=== PATIENT | female | born 1950 | race African-American/Black ===

== ENCOUNTER → 2016-09-22 | Outpatient (CLI) | payer BC ==
--- NOTE | 2016-09-22 16:25 | RAD ---
DATE: 09/22/2016 EXAM: MAMMO ROBIN FRANCIS CHANEL, BREAST RIGHT HISTORY: Screening COMPARISON: 02/05/2015 This study was interpreted with the benefit of Computerized Aided Detection (CAD). FINDINGS: The breast parenchyma shows scattered fibroglandular densities. Breast parenchyma level B. There is a well-defined periareolar nodule in the right breast best demonstrated on the cc images and robin image 20. This is also seen on the lateral robin image 16. It appears very well defined. The left breast appears unremarkable and unchanged.. Targeted ultrasound was performed. At the 10:00 position of the breast there is a hypoechoic 4 mm mass compatible with that seen on mammography. It has a benign appearance. Some vascularity is seen around the mass but not within the mass. IMPRESSION: Probable benign nodule right breast. Follow-up right breast mammogram and targeted ultrasound suggested in 6 months BI-RADS CATEGORY: 3 PROBABLE BENIGN FINDING(S-SHORT INTERVAL FOLLOW-UP SUGGESTED RECOMMENDED FOLLOW-UP: 6M 6 MONTH FOLLOW-UP PQRS compliance statement: Patient information was entered into a reminder system with a target due date 03/25/2017 for the next mammogram. Mammography is a sensitive method for finding small breast cancers, but it does not detect them all and is not a substitute for careful clinical examination. A negative mammogram does not negate a clinically suspicious finding and should not result in delay in biopsying a clinically suspicious abnormality. "Our facility is accredited by the [employer] Mammography [employer]."
== END | disposition home or self-care (01) ==
LOC: MAMMO 13:57
PROVIDERS: ATTEND Family Medicine
DX: R92.8 Other abnormal and inconclusive findings on diagnostic imaging of breast (principal)
CPT/HCPCS: 76641; G0204; G0279; 77062; 77066

== ENCOUNTER → 2017-06-10 | Outpatient (CLI) | payer BC ==
--- NOTE | 2017-06-10 14:36 | RAD ---
DATE: 06/10/2017 EXAM: DIGITAL DIAGNOSTIC RT HISTORY: 6 month follow-up nodule right breast COMPARISON: 09/22/2016 This study was interpreted with the benefit of Computerized Aided Detection (CAD). FINDINGS: Breast Density: HETERO The breast parenchyma Is heterogeneouslyy dense, which could reduce sensitivity of mammography. Breast parenchyma level C. The previously visualized nodules in the right breast in the periareolar region similar to prior exam. IMPRESSION: Unchanged right breast nodule. BI-RADS CATEGORY: 3 PROBABLE BENIGN-SHORT TERM F/U RECOMMENDED FOLLOW-UP: 6M 6 MONTH FOLLOW-UP PQRS compliance statement: Patient information was entered into a reminder system with a target due date 12/09/2017 for the next mammogram. Mammography is a sensitive method for finding small breast cancers, but it does not detect them all and is not a substitute for careful clinical examination. A negative mammogram does not negate a clinically suspicious finding and should not result in delay in biopsying a clinically suspicious abnormality. "Our facility is accredited by the [employer] Mammography [employer]."
== END | disposition home or self-care (01) ==
LOC: MAMMO 13:40
PROVIDERS: ATTEND Nurse Practitioner Family
DX: N63.10 Unspecified lump in the right breast, unspecified quadrant (principal)
CPT/HCPCS: G0206; 77065